=== PATIENT | male | born 1960 | race African-American/Black ===

== ENCOUNTER 2021-06-13 04:14 | Observation (INO) | payer BC ==
[2021-06-13] MEDS ORDERED: HYDROcodone/Acetaminophen 5/325 mg Tablet PO PRN (04:32)
[2021-06-13] MEDS ORDERED: Ondansetron PF 4 MG/2 ML Vial IVP PRN (04:32)
[2021-06-13] MEDS ORDERED: Senokot S 8.6-50 MG TAB PO PRN (04:32)
[2021-06-13] MEDS ORDERED: Guaifenesin DM 100-10/5 ML UDCUP PO PRN (04:32)
[2021-06-13] MEDS ORDERED: Calcium Carbonate 500 MG ChewTAB PO PRN (04:32)
[2021-06-13] MEDS ORDERED: Zolpidem Tartrate 5 MG TAB PO PRN (04:32)
[2021-06-13] MEDS ORDERED: Acetaminophen 325 MG TAB PO PRN (04:32)
[2021-06-13] MEDS ORDERED: Nitroglycerin 0.4 MG TAB (25 Tab Bottle) SL PRN (04:32)
[2021-06-13 04:33] VITALS: BMI 27.3
[2021-06-13] MEDS ORDERED: Potassium Chloride 20 MEQ TAB PO SCH (05:00)
[2021-06-13] MEDS: Lisinopril 5 MG TAB PO SCH (08:18)
[2021-06-13] MEDS: Enoxaparin Sodium 40 MG/0.4 ML SYRINGE SC SCH (08:18)
[2021-06-13] MEDS: Carvedilol 12.5 MG TAB PO SCH ×2 (08:18→16:58)
[2021-06-13] MEDS: Aspirin Chewable 81 MG TAB PO SCH (08:18)
[2021-06-13] MEDS: Folic Acid 1 MG TAB PO SCH (08:18)
[2021-06-13] MEDS: Thiamine 100 MG TAB PO SCH (08:18)
[2021-06-13 09:09] LABS: Cardiac Risk 4.5 (Less than 4.5)
[2021-06-13 12:36] LABS: Amphetamine Not Detected (NotDetected); Barbiturates Screen Not Detected (NotDetected); Benzodiazepine Screen Not Detected (NotDetected); Cocaine Metabolite Screen Not Detected (NotDetected); Methadone Not Detected (NotDetected); Methamphetamine Not Detected (NotDetected); Opiate Screen Detected (NotDetected); Oxycodone Screen Not Detected (NotDetected); Phencyclidine (PCP) Not Detected (NotDetected); THC/Cannabinoid Screen Not Detected (NotDetected); Tricyclic Screen Not Detected (NotDetected)
[2021-06-13] MEDS ORDERED: Atorvastatin Calcium 10 MG TAB PO SCH (21:00)
[2021-06-13] MEDS ORDERED: Tamsulosin HCl 0.4 MG CAP PO SCH (22:30)
[2021-06-14] MEDS ORDERED: Carvedilol 6.25 MG TAB PO SCH ×2 (08:15→17:00)
[2021-06-14] MEDS: Aspirin Chewable 81 MG TAB PO SCH (09:56)
[2021-06-14] MEDS: Lisinopril 5 MG TAB PO SCH (09:57)
[2021-06-14] MEDS: Thiamine 100 MG TAB PO SCH (09:57)
[2021-06-14] MEDS: Folic Acid 1 MG TAB PO SCH (09:57)
[2021-06-14] MEDS: Enoxaparin Sodium 40 MG/0.4 ML SYRINGE SC SCH (09:58)
[2021-06-14 10:04] VITALS: TEMP 96.6
[2021-06-14 12:53] VITALS: BP 129/63
== END 2021-06-14 15:30 | disposition home or self-care (01) ==
LOC: CSHTELE 04:14
PROVIDERS: ADMIT Student in an Organized Health Care Education/Training Program; ATTEND Emergency Medicine
DX: R07.89 Other chest pain (principal); I11.0 Hypertensive heart disease with heart failure; I50.9 Heart failure, unspecified; Z91.19 Patient's noncompliance with other medical treatment and regimen; F10.10 Alcohol abuse, uncomplicated; F17.210 Nicotine dependence, cigarettes, uncomplicated; I42.0 Dilated cardiomyopathy; N40.0 Benign prostatic hyperplasia without lower urinary tract symptoms; Z86.73 Personal history of transient ischemic attack (TIA), and cerebral infarction without residual deficits
CPT/HCPCS: 36415; 80061; 80306; 93005; 93010; 93306; 96372; G0378; J1650

== ENCOUNTER 2021-07-05 18:01 | Emergency (ER) | payer BC ==
[2021-07-05] MEDS ORDERED: Morphine 4 MG/ML VIAL ONE (18:31)
[2021-07-05] MEDS ORDERED: Ondansetron PF 4 MG/2 ML Vial ONE (18:31)
[2021-07-05] MEDS ORDERED: Ketorolac Tromethamine 30 MG/ML VIAL ONE (20:18)
== END 2021-07-05 20:41 | disposition home or self-care (01) ==
LOC: CSHERS 18:01
DX: M16.11 Unilateral primary osteoarthritis, right hip (principal); F17.210 Nicotine dependence, cigarettes, uncomplicated; W19.XXXA Unspecified fall, initial encounter
CPT/HCPCS: 72192; 96374; 96375; J1885; J2270; J2405

== ENCOUNTER 2023-03-01 13:06 | Outpatient (CLI) | payer OTHER ==
[2023-03-01 14:46] LABS: Hematocrit 46.5 % (38.8-50.0); Hemoglobin 15.2 g/dL (13.5-17.5); Mean Corpuscular HGB CONC 32.7 g/dL (32.0-36.0); Mean Corpuscular Hemoglobin 29.6 pg (27.0-33.0); Mean Corpuscular Volume 90.6 fl (81.2-95.1); Mean Platelet Volume 9.4 fl (7.4-10.4); Platelet Count 244 10x3/uL (150-450); RBC Distribution Width 13.2 % (11.5-14.5); Red Blood Cell (RBC) Count 5.13 10x6/uL (4.32-5.72); White Blood Cell (WBC) Count 6.8 10x3/uL (3.5-10.5)
[2023-03-01 14:55] LABS: Prothrombin Time 10.6 sec (9.5-12.1)
[2023-03-01 14:57] LABS: Anion Gap 14 mmol/L (10-20); BUN (Urea Nitrogen) 17 mg/dL (8.4-25.7); Calc. Creatinine Clearance 0 mL/min (70-130); Calcium 9.3 mg/dL (7.8-10.44); Carbon Dioxide 28 mmol/L (23-31); Chloride 108 mmol/L (98-107); Estimated GFR 73; Glucose 91 mg/dL (80-115); Potassium 4.5 mmol/L (3.5-5.1); Sodium 145 mmol/L (136-145)
[2023-03-01 19:47] LABS: Hemoglobin A1c 6.1 % (4.0-6.0)
== END 2023-03-01 13:07 | disposition home or self-care (01) ==
LOC: CSHLAB 13:06
PROVIDERS: ATTEND Orthopaedic Surgery
DX: Z01.812 Encounter for preprocedural laboratory examination (principal); M16.11 Unilateral primary osteoarthritis, right hip
CPT/HCPCS: 80048; 82306; 83036; 85027; 85610; 87081